=== PATIENT | female | born 1990 | race Two or more races ===

== ENCOUNTER 2020-08-09 10:31 | Emergency (ER) | payer OTHER ==
[~2020-08-09] VITALS: Ht 152.4 cm; Wt 69.4 kg
== END 2020-08-09 13:04 | disposition home or self-care (01) ==
LOC: ER 10:31
DX: S00.81XA Abrasion of other part of head, initial encounter (principal); S00.03XA Contusion of scalp, initial encounter; W05.1XXA Fall from non-moving nonmotorized scooter, initial encounter; Y93.19 Activity, other involving water and watercraft; Y92.89 Other specified places as the place of occurrence of the external cause; Y99.8 Other external cause status